=== PATIENT | male | born 1985 | race Caucasian/White ===

== ENCOUNTER 2016-04-27 03:29 | Emergency (ER) | payer MEDICAID ==
[2016-04-27 03:38] VITALS: BP 144/88; PULSE 107; TEMP 98.4
[2016-04-27 03:39] VITALS: BMI 32.5
[2016-04-27] MEDS ORDERED: KETOROLAC TROMETHAMINE 10 MG TAB PO ONE (03:40)
--- NOTE | 2016-04-27 03:44 | EDPRACDOC ---
- General Information Stated Complaint: JAMMED THUMB Time Seen by Provider: 04/27/16 03:41 Information Source: Patient Home Medications: Home Medications Ketorolac Tromethamine 10 mg PO Q6H PRN #20 tab 04/27/16 Allergies/Adverse Reactions: Allergies Allergy/AdvReac Type Severity Reaction Status Date / Time No Known Allergies Allergy Verified 04/27/16 03:34 - History of Present Illness Onset: Wednesday HPI: PT FELL AND INJURED LEFT THUMB YESTERDAY. CAME IN VIA EMS. PT STATES NO CAR. Location: Reports: Left, Thumb Dominant Hand: Left Mechanism: Reports: FOOSH Circumstances: Reports: Fall Tetanus Up To Date?: Yes Associated Signs & Symptoms: Reports: None ED Past Medical History - History Reviewed Yes Nurses notes reviewed and agree except as marked - Patient Medical History Psychological History: Denies: Depression - Social Medical History Smoking Status: Heavy tobacco smoker (5 or more cigarettes/day or daily pipe/ cigar) EDM Review of Systems - Review of Systems ROS Negative Except as Marked: Yes All systems reviewed and were negative except as marked - Physical Exam Constitutional: No apparent distress Oriented to: Time, Person, Place Last recorded Vital Signs: Last Vital Signs Temp 98.4 F 04/27/16 03:35 Pulse 107 04/27/16 03:35 Resp 18 04/27/16 03:35 BP 144/88 04/27/16 03:35 Pulse Ox 95 04/27/16 03:35 Oxygen Pulse Oxygen Saturation 95 O2 Device Oxygen Flow Rate Fraction of Inspired Oxygen ( FIO2) ED Hand Problem Physical Exam - Musculoskeletal Hand: Normal Wrist: Normal Digit: Swelling, Mild Tenderness Digit Strength: Normal Nail: Normal Nailbed: Normal Soft Tissue: Normal Distal Function/Circulation: Normal, Capillary Refill - Integumentary Skin: Swelling Decision Time to Discharge: 04:08 - Departure Yes I personally saw and evaluated the patient. Disposition: Home Condition: Good Final Diagnosis: THUMB CONTUSION Instructions: Contusion in Adults (ED) Education/Counseling Given To: Patient Education/Counseling Given Regarding: Diagnosis, Treatment, Prognosis Prescriptions: Ketorolac Tromethamine 10 mg PO Q6H PRN #20 tab PRN Reason: Pain
--- NOTE | 2016-04-27 04:08 | DIRPT ---
CLINICAL DATA: Fell twice on ice yesterday. Thumb pain. EXAM: LEFT HAND - COMPLETE 3+ VIEW COMPARISON: LEFT thumb radiograph July 26, 2006 FINDINGS: There is no evidence of fracture or dislocation. There is no evidence of arthropathy or other focal bone abnormality. Soft tissues are unremarkable. IMPRESSION: Negative. Electronically Signed By: Shaheed Ma M.D. On: 04/27/2016 04:05
== END 2016-04-27 04:24 | disposition home or self-care (01) ==
LOC: ED 03:29
DX: S60.012A Contusion of left thumb without damage to nail, initial encounter (principal); W19.XXXA Unspecified fall, initial encounter; F17.200 Nicotine dependence, unspecified, uncomplicated
CPT/HCPCS: 73130; 99283; J3490

== ENCOUNTER 2016-04-28 03:41 | Emergency (ER) | payer MEDICAID ==
[2016-04-28 03:41] VITALS: BMI 32.5
[2016-04-28] MEDS ORDERED: LIDOCAINE 1% 5 ML (METHYLPARABEN FREE) ONE (03:44)
[2016-04-28 03:46] VITALS: BP 162/95; PULSE 108; TEMP 98
--- NOTE | 2016-04-28 04:12 | EDPRACDOC ---
- General Information Chief Complaint: Hand Pain Stated Complaint: THUMB PAIN Time Seen by Provider: 04/28/16 04:09 Information Source: Patient Mode of Arrival: Ambulance Home Medications: Home Medications Ketorolac Tromethamine 10 mg PO Q6H PRN #20 tab 04/27/16 Clindamycin [Cleocin] 150 mg PO TID #20 capsule 04/28/16 Allergies/Adverse Reactions: Allergies Allergy/AdvReac Type Severity Reaction Status Date / Time No Known Allergies Allergy Verified 04/28/16 03:45 - History of Present Illness Onset: 3 days HPI: L thumb pain x 3 days getting worse, fell and jammed it a few days ago, had xray here last neg for Fx. Not getting better, unable to sleep, called EMS. Location: Reports: Left, Thumb Mechanism: Reports: Jam Circumstances: Denies: MVC, Altercation (works construction) Associated Signs & Symptoms: Denies: Foreign Body ED Past Medical History - History Reviewed Yes Nurses notes reviewed and agree except as marked - Patient Medical History Psychological History: Denies: Depression - Social Medical History Smoking Status: Heavy tobacco smoker (5 or more cigarettes/day or daily pipe/ cigar) EDM Review of Systems - Review of Systems ROS Negative Except as Marked: Yes All systems reviewed and were negative except as marked - Physical Exam Constitutional: Alert (Awake), No apparent distress Oriented to: Time, Person, Place Last recorded Vital Signs: Last Vital Signs Temp 98.0 F 04/28/16 03:44 Pulse 108 04/28/16 03:44 Resp 18 04/28/16 03:44 BP 162/95 04/28/16 03:44 Pulse Ox 98 04/28/16 03:44 Oxygen Pulse Oxygen Saturation 98 O2 Device Oxygen Flow Rate Fraction of Inspired Oxygen ( FIO2) - HEENT Head: Normal ( normocephalic) Eye Exam: Normal (PERRL, EOMI, Sclera white) Oropharynx: Normal (Pharynx:Moist without exudate,Gums-no swelling) Tympanic Membrane: Normal ENT EAC: Normal TMJ: Normal Nose: No Symptoms Reported (septum midline) Neck: Normal (FROM, trachea at midline) - Respiratory/Cardiovascular Respiratory: Normal - CTA (BBS clear to auscultation without adventitious sounds ) Cardiovascular: Normal (RRR without murmur, gallop or rub) - GI Auscultation: Normal (NABS) Palpation: Normal (Soft,No rebound or guarding, non distended) Tenderness: Non tender Collins's Sign: Negative - Musculoskeletal Extremities: Other (L thumb TTP and swelling around lateral nail bed with underlying fluctuance) - Integumentary Skin: Normal, Warm, Dry Lymphatics: Normal (no adenopathy) - Neurologic Memory Impaired: Normal Motor Function: Normal (Normal tone, Pulses 2+ No cyanosis or edema, FROM) Cranial Nerve: Normal (CN II-X11 intact sensation, strength 5/5) Cerebellar: Normal Mood Description: Normal Perception: Normal ED Procedures - Incision and Drainage Informed of risks, benefits and alternatives described.: Yes Informed Consent Signed: Verbal Indication: Other (paronychia) Anesthetic: Lidocaine, without Epi Prep: Chlorhexadine Prep Blade Size: 11 Incised Site drained: Reports: Pus Incised site was: Irrigated, Not Packed with Iodoform Decision Time to Discharge: 04:13 - Departure Yes I personally saw and evaluated the patient. Disposition: Home Condition: Fair Final Diagnosis: Paronychia Instructions: Paronychia (ED) Education/Counseling Given To: Patient Education/Counseling Given Regarding: Diagnosis, Treatment, Follow Up Referrals: None,No Provider [Primary Care Provider] - One Week Prescriptions: Clindamycin [Cleocin] 150 mg PO TID #20 capsule Additional Instructions: return to the ED if infection gets worse or returns
== END 2016-04-28 04:39 | disposition home or self-care (01) ==
LOC: ED 03:41
DX: L03.012 Cellulitis of left finger (principal)
CPT/HCPCS: 26010; 96372; 99282; J3490